=== PATIENT | male | born 1940 | race Caucasian/White ===

== ENCOUNTER 2019-11-25 13:33 | Outpatient (REF) | payer MEDICARE, SELFPAY ==
[2019-11-25 17:15] LABS: Estimated Average Glucose 146 mg/dL; Hemoglobin A1c % 6.7 %
[2019-11-25 17:44] LABS: Anion Gap 18 (12-20); Blood Urea Nitrogen 25 mg/dL (9-16); Calcium 9.2 mg/dL (8.4-10.2); Carbon Dioxide 24 mmol/L (22-29); Chloride 101 mmol/L (96-108); Estimated Glomerular Filt Rate 47; Glucose Random 264 mg/dL (60-115); Iron 99 mcg/dL (45-160); Percent Iron Saturation 30 % (15-50); Potassium 3.4 mmol/l (3.3-5.1); Sodium 140 mmol/L (135-145); Total Iron Binding Capacity 334 mcg/dL (228-428); Unsaturated Iron Binding 235 ug/dL
[2019-11-25 18:05] LABS: Thyroid Stimulating Hormone 2.87 mIU/mL (0.32-4.0)
== END 2019-11-25 13:34 | disposition home or self-care (01) ==
LOC: HO.HMGCLDS 13:33
PROVIDERS: PCP Internal Medicine; Visit Provider Internal Medicine
DX: R73.03 Prediabetes (principal); I12.9 Hypertensive chronic kidney disease with stage 1 through stage 4 chronic kidney disease, or unspecified chronic kidney disease; N18.9 Chronic kidney disease, unspecified; D64.9 Anemia, unspecified; J45.909 Unspecified asthma, uncomplicated
CPT/HCPCS: 80048; 83036; 83540; 84443

== ENCOUNTER → 2019-12-20 11:24 | Outpatient (BNVA) | payer MEDICARE, SELFPAY | PROVIDERS: PCP Internal Medicine; Referring Provider Internal Medicine; Visit Provider Internal Medicine Cardiovascular Disease | DX: R06.00 Dyspnea, unspecified (principal); I10 Essential (primary) hypertension; Z79.899 Other long term (current) drug therapy; Z87.891 Personal history of nicotine dependence | CPT/HCPCS: 93005; 99202 ==

== ENCOUNTER → 2019-12-22 12:43 | Outpatient (REF) | payer MEDICARE, SELFPAY ==
--- NOTE | 2019-12-22 13:10 | CA_ITS ---
Transthoracic Echocardiogram Patient (Last, First, Middle): Leighton Cummings R Gender: Male Date of : 1940 Age: 79 Procedure Date: 12/22/2019 Procedure Type: Transthoracic Echocardiogram Location: OP Height: 167.64 cm Weight: 83.01 kg BSA: 1.93 m2 Heart Rate: bpm BP: 136 / [address] Stenographer: Referring MD: Albert Ramirez MD Affiliate Marketing Coordinator: Librado Sanders MD Symptoms: R06.00 - Dyspnea, unspecified Study Quality: Technically Difficult, Definity used ECG Rhythm: Sinus Conclusions: - 1. Normal LV systolic function with mild LVH with impaired relaxation filling pattern 2. Mildly dilated left atrium 3. Limited valvular evaluation 4. Normal calculated RV systolic pressure 5. Pericardium not well visualized Findings Procedure Information Contrast agent, definity, is being given per protocol without apparent complications. Left Ventricle Normal left ventricular size and systolic function. There is mildly increased left ventricular wall thickness. The visually estimated ejection fraction is between 65-70%. Spectral Doppler is indicative of an impaired relaxation filling pattern. E/E prime ratio is between 8 and 15 consistent with indeterminate filling pressures. Right Ventricle The right ventricle was not well visualized. Atria The left atrium is mildly dilated. Interatrial shunt cannot be excluded. The right atrium was not well visualized. Aortic Valve The aortic valve was not well visualized. There is mild calcification of the aortic valve. There is no aortic valve regurgitation. Mitral Valve The mitral valve was not well visualized. There is no mitral valve regurgitation. There is no mitral valve stenosis. Pulmonic Valve The pulmonic valve was not well visualized. Tricuspid Valve The tricuspid valve was not well visualized. The right ventricular systolic pressure is normal. Great Vessels The aorta was not well visualized. The pulmonary artery was not well visualized. Venous The inferior vena cava was not well visualized. Pericardium/Pleural The pericardium was not well visualized. Prior Study Comparison Comparison is in adequate due to suboptimal quality of present study Measurements 2D Linear Measurements IVSd: 1.28 0.6-0.9/0.6-1.0 cm LVIDd: 4.06 3.9-5.3/4.2-5.9 cm LVIDd Index: 2.10 2.4-3.2/2.2-3.1 cm/m2 LVIDs: 2.27 2.0-3.6 cm LVPWd: 1.28 0.7-1.1 cm Ao Root: 2.90 2.1-3.5 cm LA Diam: 3.30 2.7-3.8/3.0-4.0 cm LAIDs Index: 1.71 1.5-2.3 cm/m2 LV Mass: 232.12 67-162/88-224 g LV Mass Index: 120.27 43-95/49-115 g/m2 LVOT Diam: 2.00 3.0+(-)1.3 cm Mitral Valve MV Pk E: 0.60 MV PK A: 0.91 MV Decel Time: 240.00 E/A: 0.70 E'Lateral: 4.74 E'Medial: 6.48 E/E' Med: 9.30 E/E' Lat: 12.70 PHT: 70.00 MVA PHT: 3.14 Decel Russell: 2.50 Aortic Valve AoV Pk Jori: 2.01 AoV Mn Jori: 1.21 AoV VTI: 0.31 AoV Pk Grad: 16.00 Aov Mn Grad: 7.00 DAVIS Cont.VTI: 2.24 LVOT LVOT Pk Jori: 1.09 LVOT Mn Jori: 0.74 LVOT VTI: 0.22 LVOT Pk Grad: 5.00 LVOT Mn Grad: 3.00 LVOT Diam: 2.00 LVOT Area: 3.14 Diastolic Function MV Pk E: 0.60 MV Pk A: 0.91 E/A: 0.70 E'Medial: 6.48 E/E' Med: 9.30 E' Laterial: 4.74 E/E' Lat: 12.70 Tricuspid Valve TR Pk Jori: 1.93 TR Pk Grad: 15.00 Great Vessels Aorta Ao Root-2D: 2.90 2.0-3.7 cm Ao Asc: 3.00 2.1-3.4 cm Pulmonary Valve PV Pk Jori: 1.02 Peak PV Grad: 4.00 Updated in Other Vendor System with Status of Final Librado Sanders MD electronically signed on 12/23/2019 2:50:35 PM with status of Final
[2019-12-22 14:33] LABS: Hematocrit 39.5 % (42-52); Hemoglobin 13.2 g/dl (14.0-18.0); Mean Corpuscular HGB Conc 33.4 g/dl (31.0-36.0); Mean Corpuscular Hemoglobin 30.7 pg (27.0-33.0); Mean Corpuscular Volume 91.9 fL (80-98); Mean Platelet Volume 12.7 fL (9.4-12.4); Red Cell Distribution Width 15.1 % (11.0-16.0); White Blood Count 7.4 X10*3/uL (4.8-10.8)
[2019-12-22 14:40] LABS: Prothrombin Time 11.6 SEC (10.8-13.0)
[2019-12-22 15:13] LABS: Platelet Count 73 X10*3/uL (160-400)
[2019-12-22 15:30] LABS: Anion Gap 21 (12-20); Blood Urea Nitrogen 21 mg/dL (9-16); Calcium 8.9 mg/dL (8.4-10.2); Carbon Dioxide 23 mmol/L (22-29); Chloride 100 mmol/L (96-108); Estimated Glomerular Filt Rate 52; Glucose Random 222 mg/dL (60-115); Potassium 3.9 mmol/l (3.3-5.1); Sodium 140 mmol/L (135-145)
== END ==
LOC: HO.CARD 12:43
PROVIDERS: PCP Internal Medicine; Visit Provider Internal Medicine Cardiovascular Disease
DX: R06.00 Dyspnea, unspecified (principal)
CPT/HCPCS: 36415; 80048; 85027; 85610; 93306; Q9957

== ENCOUNTER → 2020-01-12 13:04 | Outpatient (BNVA) | payer MEDICARE, SELFPAY | PROVIDERS: PCP Internal Medicine; Visit Provider Internal Medicine Cardiovascular Disease | DX: I25.10 Atherosclerotic heart disease of native coronary artery without angina pectoris (principal); I63.9 Cerebral infarction, unspecified; I65.29 Occlusion and stenosis of unspecified carotid artery; R06.00 Dyspnea, unspecified; I10 Essential (primary) hypertension | CPT/HCPCS: 99212 ==